=== PATIENT | female | born 1970 | race Caucasian/White ===

== ENCOUNTER 2021-07-09 16:08 | Inpatient (IN) | payer BC ==
[2021-07-09] MEDS ORDERED: THIAMINE HCL 200 MG/2 ML VIAL IVPB ONE (17:05)
[2021-07-09] MEDS ORDERED: MULTIVITAMINS (DAILY MVI) TABLET (FP) PO ONE (17:06)
[2021-07-09] MEDS ORDERED: diazePAM CARPU-JECT 10 MG/2 ML DISP.SYRIN IVPUSH ONE (17:08)
[2021-07-09] MEDS ORDERED: THIAMINE HCL 200 MG/2 ML VIAL ONE (17:57)
[2021-07-09] MEDS ORDERED: MULTIVITAMINS (DAILY MVI) TABLET (FP) ONE (17:58)
[2021-07-09] MEDS ORDERED: diazePAM CARPU-JECT 10 MG/2 ML DISP.SYRIN ONE (18:02)
[2021-07-09 18:05] LABS: BASO % 0.2 % (0-2.0); EOS % 0.4 % (0-4.5); HEMATOCRIT 32.9 % (32.4-45.2); HEMOGLOBIN 11.3 GM/dL (10.7-15.3); LYMPH % 8.2 % (8-40); MCHC 34.2 g/dl (32.0-36.0); MEAN CELL VOLUME 108.1 fl (80-96); MONO % 8.5 % (3.8-10.2); NEUT % 82.7 % (42.8-82.8); RBC 3.04 M/mm3 (3.60-5.2); RDW 16.5 % (11.6-15.6); RETICULOCYTES 2.07 % (0.5-1.5); WHITE BLOOD COUNT 3.5 K/mm3 (4.0-10.0)
[2021-07-09 18:14] LABS: INR 1.71 (0.83-1.09); PROTHROMBIN TIME (PATIENT) 19.8 SEC (9.7-13.0)
[2021-07-09] MEDS ORDERED: FOLIC ACID 1 MG TABLET (FP) PO ONE (18:14)
[2021-07-09 18:16] LABS: ACTIVATED PTT 33.6 SECONDS (25.2-36.5)
[2021-07-09 18:29] LABS: CHLORIDE 98 mmol/L (98-107); SODIUM 137 mmol/L (136-145)
[2021-07-09 18:31] LABS: CALCIUM 8.7 mg/dL (8.5-10.1)
[2021-07-09 18:32] LABS: ALBUMIN 2.9 g/dl (3.4-5.0); ANION GAP 10 MMOL/L (8-16); BLOOD UREA NITROGEN 9.7 mg/dL (7-18); CO2 29 mmol/L (21-32); GLUCOSE,RANDOM 111 mg/dL (74-106); LIPASE 235 U/L (73-393); MAGNESIUM 2.1 mg/dL (1.8-2.4)
[2021-07-09 18:34] LABS: CREATININE 0.9 mg/dL (0.55-1.3)
[2021-07-09 18:35] LABS: PHOSPHOROUS 2.4 mg/dL (2.5-4.9); SGOT/AST 225 U/L (15-37); SGPT/ALT 74 U/L (13-61)
[2021-07-09 18:36] LABS: BILIRUBIN,TOTAL 6.4 mg/dL (0.2-1); TOT PROT 7.8 g/dl (6.4-8.2)
[2021-07-09 18:37] LABS: ALK PHOS 274 U/L (45-117)
[2021-07-09 18:38] LABS: N-TERMINAL BNP 870.5 pg/ml (5-125)
[2021-07-09 19:25] LABS: ANISOCYTOSIS 1+; MACROCYTOSIS 2+; PLATELET ESTIMATE DECREASED
[2021-07-09 19:39] LABS: MEAN PLT VOLUME 9.9 fl (7.5-11.1); PLATELET COUNT 70 10^3/uL (134-434)
[2021-07-09 19:43] LABS: CALCIUM 8.6 mg/dL (8.5-10.1)
[2021-07-09 19:44] LABS: BLOOD UREA NITROGEN 8.4 mg/dL (7-18); MAGNESIUM 2.1 mg/dL (1.8-2.4)
[2021-07-09 19:46] LABS: BILIRUBIN,DIRECT 3.6 mg/dL (0.0-0.2)
[2021-07-09 19:47] LABS: PHOSPHOROUS 2.1 mg/dL (2.5-4.9)
[2021-07-09 19:48] LABS: TOT PROT 7.4 g/dl (6.4-8.2)
[2021-07-09 20:38] LABS: HIV INTERPRETATION NEGATIVE (NEGATIVE)
[2021-07-09] MEDS ORDERED: FOLIC ACID 1 MG TABLET (FP) ONE (20:41)
[2021-07-09 20:54] LABS: CREATININE 0.7 mg/dL (0.55-1.3)
[2021-07-09 21:34] LABS: URINE APPEARANCE CLEAR; URINE BILIRUBIN NEGATIVE (NEGATIVE); URINE COLOR YELLOW; URINE GLUCOSE (UA) NEGATIVE (NEGATIVE); URINE KETONE TRACE (NEGATIVE); URINE LEUK ESTERASE NEGATIVE (NEGATIVE); URINE NITRITE NEGATIVE (NEGATIVE); URINE PROTEIN NEGATIVE (NEGATIVE)
[2021-07-09 21:44] LABS: METHADONE, UR NEGATIVE (NEGATIVE)
[2021-07-09 21:45] LABS: COCAINE, UR NEGATIVE (NEGATIVE); OPIATES, URI NEGATIVE (NEGATIVE)
[2021-07-09 21:46] LABS: PHENCYCLIDINE,URINE NEGATIVE (NEGATIVE); URINE BENZODIAZEPINES NEGATIVE (NEGATIVE)
[2021-07-09 21:49] LABS: URINE AMPHETAMINES NEGATIVE (NEGATIVE); URINE BARBITURATES NEGATIVE (NEGATIVE)
[2021-07-10] MEDS ORDERED: diazePAM 5 MG TABLET PO ONE (00:57)
[2021-07-10] MEDS ORDERED: POLYETHYLENE GLYCOL (HEALTHYLAX) 3350 17 GM PACKET PO PRN (01:12)
[2021-07-10 04:15] VITALS: BMI 40.2
[2021-07-10] MEDS ORDERED: LORazepam 2 MG/ML SDV VIAL IVPUSH PRN (05:00)
[2021-07-10] MEDS ORDERED: PANTOPRAZOLE 40 MG TABLET PO SCH (10:00)
[2021-07-10] MEDS ORDERED: DEXTROSE 5%-WATER - 50 ML IVPB ONE (10:45)
[2021-07-10] MEDS ORDERED: cefTRIAXone SODIUM 1 GM VIAL ONE (10:45)
[2021-07-10] MEDS: LORazepam 0.5 MG TABLET PO PRN (10:48)
[2021-07-10] MEDS: guaiFENesin 200 MG/10 ML 10 ML UNIT-DOSE CUPS PO PRN ×2 (10:49→17:37)
[2021-07-10] MEDS: THIAMINE HCL 100 MG TABLET (FP) PO SCH (10:49)
[2021-07-10] MEDS: MULTIVITAMINS (DAILY MVI) TABLET (FP) PO SCH (10:49)
[2021-07-10] MEDS: FOLIC ACID 1 MG TABLET (FP) PO SCH (10:49)
[2021-07-10] MEDS: CEFTRIAXONE 1 GM in DEXTROSE 5%-WATER - 50 ML IVPB SCH (10:50)
[2021-07-10 11:16] LABS: CALCIUM 8.2 mg/dL (8.5-10.1)
[2021-07-10 11:17] LABS: ALBUMIN 2.6 g/dl (3.4-5.0); BLOOD UREA NITROGEN 10.3 mg/dL (7-18)
[2021-07-10 11:20] LABS: CREATININE 0.8 mg/dL (0.55-1.3)
[2021-07-10 11:21] LABS: BILIRUBIN,TOTAL 4.8 mg/dL (0.2-1)
[2021-07-10 11:22] LABS: TOT PROT 6.4 g/dl (6.4-8.2)
[2021-07-10] MEDS ORDERED: ACETYLCYSTEINE INJECTION 20% 15,000 MG in DEXTROSE 5%-WATER - 250 ML IVPB SCH (12:00)
[2021-07-10] MEDS ORDERED: ACETYLCYSTEINE INJECTION 20% 5,000 MG in DEXTROSE 5%-WATER - 500 ML IVPB SCH (13:00)
[2021-07-10] MEDS ORDERED: ACETYLCYSTEINE INJECTION 20% 10,000 MG in DEXTROSE 5%-WATER - 1,000 ML IVPB SCH ×2 (17:00→20:45)
[2021-07-10] MEDS ORDERED: POTASSIUM CHLORIDE TABS 20 MEQ TABLET.ER (FP) PO ONE (17:47)
[2021-07-10] MEDS ORDERED: ALBUTEROL SO4 HFA INHALER IH PRN (17:54)
[2021-07-10] MEDS: traMADol HCL 50 MG TABLET PO PRN (18:34)
[2021-07-10] MEDS: POLYETHYLENE GLYCOL (HEALTHYLAX) 3350 17 GM PACKET PO SCH (22:36)
[2021-07-11] MEDS ORDERED: DEXTROSE 5%-WATER - 50 ML IVPB ONE (09:11)
[2021-07-11] MEDS ORDERED: cefTRIAXone SODIUM 1 GM VIAL ONE (09:11)
[2021-07-11] MEDS: THIAMINE HCL 100 MG TABLET (FP) PO SCH (09:17)
[2021-07-11] MEDS: MULTIVITAMINS (DAILY MVI) TABLET (FP) PO SCH (09:17)
[2021-07-11] MEDS: CEFTRIAXONE 1 GM in DEXTROSE 5%-WATER - 50 ML IVPB SCH (09:17)
[2021-07-11] MEDS: FOLIC ACID 1 MG TABLET (FP) PO SCH (09:17)
[2021-07-11] MEDS: POLYETHYLENE GLYCOL (HEALTHYLAX) 3350 17 GM PACKET PO SCH ×2 (09:17→21:03)
[2021-07-11] MEDS: LORazepam 0.5 MG TABLET PO PRN ×2 (09:20→17:20)
[2021-07-11] MEDS: guaiFENesin 200 MG/10 ML 10 ML UNIT-DOSE CUPS PO PRN (09:26)
[2021-07-11 09:39] LABS: HEMOGLOBIN 11.1 GM/dL (10.7-15.3); MCH 36.2 pg (25.7-33.7); MCHC 33.7 g/dl (32.0-36.0); MEAN CELL VOLUME 107.5 fl (80-96); MEAN PLT VOLUME 9.2 fl (7.5-11.1); PLATELET COUNT 68 10^3/uL (134-434); RBC 3.07 M/mm3 (3.60-5.2); RDW 16.5 % (11.6-15.6); WHITE BLOOD COUNT 3.1 K/mm3 (4.0-10.0)
[2021-07-11 10:09] LABS: ALBUMIN 2.7 g/dl (3.4-5.0); BLOOD UREA NITROGEN 5.3 mg/dL (7-18); CALCIUM 8.3 mg/dL (8.5-10.1)
[2021-07-11 10:11] LABS: MAGNESIUM 1.8 mg/dL (1.8-2.4)
[2021-07-11 10:12] LABS: PHOSPHOROUS 1.9 mg/dL (2.5-4.9)
[2021-07-11 10:14] LABS: BILIRUBIN,TOTAL 4.9 mg/dL (0.2-1); TOT PROT 6.8 g/dl (6.4-8.2)
[2021-07-11 10:17] LABS: ALBUMIN 2.6 g/dl (3.4-5.0)
[2021-07-11 10:21] LABS: BILIRUBIN,TOTAL 4.8 mg/dL (0.2-1); TOT PROT 6.8 g/dl (6.4-8.2)
[2021-07-11 10:25] LABS: CREATININE 0.7 mg/dL (0.55-1.3)
[2021-07-11 10:55] LABS: ANISOCYTOSIS 2+; MACROCYTOSIS 0
[2021-07-11] MEDS: traMADol HCL 50 MG TABLET PO PRN ×2 (10:55→21:02)
[2021-07-11 11:22] LABS: ACTIVATED PTT 35.5 SECONDS (25.2-36.5); INR 1.83 (0.83-1.09); PROTHROMBIN TIME (PATIENT) 21.2 SEC (9.7-13.0)
[2021-07-11] MEDS ORDERED: POTASSIUM CHLORIDE TABS 20 MEQ TABLET.ER (FP) PO ONE (15:03)
[2021-07-12] MEDS ORDERED: FUROSEMIDE 40 MG/4 ML INJECTABLE VIAL IVPUSH ONE (09:28)
[2021-07-12] MEDS ORDERED: DEXTROSE 5%-WATER - 50 ML IVPB ONE (09:43)
[2021-07-12] MEDS ORDERED: cefTRIAXone SODIUM 1 GM VIAL ONE (09:43)
[2021-07-12 09:45] LABS: HEMATOCRIT 31.5 % (32.4-45.2); HEMOGLOBIN 10.8 GM/dL (10.7-15.3); MCH 36.7 pg (25.7-33.7); MCHC 34.2 g/dl (32.0-36.0); MEAN CELL VOLUME 107.6 fl (80-96); PLATELET COUNT 62 10^3/uL (134-434); RBC 2.93 M/mm3 (3.60-5.2); RDW 16.2 % (11.6-15.6); WHITE BLOOD COUNT 2.6 K/mm3 (4.0-10.0)
[2021-07-12 09:52] LABS: INR 1.8 (0.83-1.09); PROTHROMBIN TIME (PATIENT) 20.8 SEC (9.7-13.0)
[2021-07-12] MEDS: POLYETHYLENE GLYCOL (HEALTHYLAX) 3350 17 GM PACKET PO SCH ×2 (10:13→21:10)
[2021-07-12] MEDS: LORazepam 0.5 MG TABLET PO PRN ×2 (10:13→21:08)
[2021-07-12] MEDS: guaiFENesin 200 MG/10 ML 10 ML UNIT-DOSE CUPS PO PRN ×2 (10:13→21:07)
[2021-07-12] MEDS: POTASSIUM CHLORIDE TABS 20 MEQ TABLET.ER (FP) PO SCH ×2 (10:13→21:08)
[2021-07-12] MEDS: CEFTRIAXONE 1 GM in DEXTROSE 5%-WATER - 50 ML IVPB SCH (10:13)
[2021-07-12] MEDS: MAGNESIUM OXIDE 400 MG TABLET (FP) PO SCH ×2 (10:14→21:08)
[2021-07-12] MEDS: FOLIC ACID 1 MG TABLET (FP) PO SCH (10:14)
[2021-07-12 10:29] LABS: ANISOCYTOSIS 1+; MACROCYTOSIS 0
[2021-07-12 10:32] LABS: ALBUMIN 2.7 g/dl (3.4-5.0)
[2021-07-12 10:34] LABS: CALCIUM 8.4 mg/dL (8.5-10.1)
[2021-07-12 10:35] LABS: BLOOD UREA NITROGEN 5.4 mg/dL (7-18)
[2021-07-12 10:36] LABS: BILIRUBIN,DIRECT 2.6 mg/dL (0.0-0.2)
[2021-07-12 10:38] LABS: CREATININE 0.7 mg/dL (0.55-1.3)
[2021-07-12 10:39] LABS: BILIRUBIN,TOTAL 3.9 mg/dL (0.2-1); TOT PROT 6.5 g/dl (6.4-8.2)
[2021-07-12] MEDS: MULTIVITAMINS (DAILY MVI) TABLET (FP) PO SCH (10:39)
[2021-07-12] MEDS: THIAMINE HCL 100 MG TABLET (FP) PO SCH (10:39)
[2021-07-13 08:26] LABS: HEMATOCRIT 31.4 % (32.4-45.2); HEMOGLOBIN 10.5 GM/dL (10.7-15.3); MCH 36.6 pg (25.7-33.7); MCHC 33.6 g/dl (32.0-36.0); MEAN CELL VOLUME 109.1 fl (80-96); MEAN PLT VOLUME 9.2 fl (7.5-11.1); PLATELET COUNT 61 10^3/uL (134-434); RBC 2.88 M/mm3 (3.60-5.2); RDW 16.4 % (11.6-15.6); WHITE BLOOD COUNT 2.6 K/mm3 (4.0-10.0)
[2021-07-13 08:30] LABS: INR 1.9 (0.83-1.09)
[2021-07-13 08:47] LABS: ALBUMIN 2.4 g/dl (3.4-5.0); CALCIUM 8.3 mg/dL (8.5-10.1)
[2021-07-13 08:48] LABS: BLOOD UREA NITROGEN 6.6 mg/dL (7-18); MAGNESIUM 1.9 mg/dL (1.8-2.4)
[2021-07-13 08:50] LABS: BILIRUBIN,DIRECT 2.2 mg/dL (0.0-0.2)
[2021-07-13 08:52] LABS: BILIRUBIN,TOTAL 3.3 mg/dL (0.2-1); TOT PROT 6.2 g/dl (6.4-8.2)
[2021-07-13 08:53] LABS: CREATININE 0.6 mg/dL (0.55-1.3)
[2021-07-13] MEDS ORDERED: PHYTONADIONE 10 MG/1 ML AMP IVPB ONE (09:08)
[2021-07-13 09:38] LABS: ANISOCYTOSIS 1+; MACROCYTOSIS 1+
[2021-07-13] MEDS ORDERED: DEXTROSE 5%-WATER - 50 ML IVPB ONE (09:50)
[2021-07-13] MEDS ORDERED: cefTRIAXone SODIUM 1 GM VIAL ONE (09:50)
[2021-07-13] MEDS: FOLIC ACID 1 MG TABLET (FP) PO SCH (10:18)
[2021-07-13] MEDS: POTASSIUM CHLORIDE TABS 20 MEQ TABLET.ER (FP) PO SCH ×2 (10:18→21:55)
[2021-07-13] MEDS: THIAMINE HCL 100 MG TABLET (FP) PO SCH (10:18)
[2021-07-13] MEDS: POLYETHYLENE GLYCOL (HEALTHYLAX) 3350 17 GM PACKET PO SCH ×2 (10:19→21:55)
[2021-07-13] MEDS: MAGNESIUM OXIDE 400 MG TABLET (FP) PO SCH ×2 (10:19→21:56)
[2021-07-13] MEDS: MULTIVITAMINS (DAILY MVI) TABLET (FP) PO SCH (10:19)
[2021-07-13] MEDS: CEFTRIAXONE 1 GM in DEXTROSE 5%-WATER - 50 ML IVPB SCH (10:47)
[2021-07-13] MEDS: traMADol HCL 50 MG TABLET PO PRN (17:06)
[2021-07-13] MEDS ORDERED: FUROSEMIDE 40 MG/4 ML INJECTABLE VIAL IVPUSH ONE (17:17)
[2021-07-13] MEDS: guaiFENesin 200 MG/10 ML 10 ML UNIT-DOSE CUPS PO PRN (18:20)
[2021-07-13] MEDS: LORazepam 0.5 MG TABLET PO PRN (21:56)
[2021-07-14 08:11] LABS: HEMATOCRIT 32.6 % (32.4-45.2); MCH 36.6 pg (25.7-33.7); MCHC 33.8 g/dl (32.0-36.0); MEAN CELL VOLUME 108.2 fl (80-96); MEAN PLT VOLUME 9.6 fl (7.5-11.1); PLATELET COUNT 74 10^3/uL (134-434); RBC 3.01 M/mm3 (3.60-5.2); RDW 15.8 % (11.6-15.6); WHITE BLOOD COUNT 2.8 K/mm3 (4.0-10.0)
[2021-07-14] MEDS ORDERED: FUROSEMIDE 40 MG/4 ML INJECTABLE VIAL IVPUSH ONE (08:13)
[2021-07-14 08:31] LABS: CALCIUM 8.5 mg/dL (8.5-10.1); INR 1.77 (0.83-1.09); PROTHROMBIN TIME (PATIENT) 20.5 SEC (9.7-13.0)
[2021-07-14 08:32] LABS: ALBUMIN 2.6 g/dl (3.4-5.0); BLOOD UREA NITROGEN 6.6 mg/dL (7-18)
[2021-07-14 08:35] LABS: BILIRUBIN,DIRECT 2.2 mg/dL (0.0-0.2); CREATININE 0.6 mg/dL (0.55-1.3)
[2021-07-14 08:37] LABS: BILIRUBIN,TOTAL 3.6 mg/dL (0.2-1); TOT PROT 6.6 g/dl (6.4-8.2)
[2021-07-14 09:07] LABS: BASO % 1.1 % (0-2.0); EOS % 3.2 % (0-4.5); HEMATOCRIT 32.6 % (32.4-45.2); LYMPH % 25.1 % (8-40); MCH 36.3 pg (25.7-33.7); MCHC 33.7 g/dl (32.0-36.0); MEAN CELL VOLUME 107.8 fl (80-96); MEAN PLT VOLUME 9.4 fl (7.5-11.1); MONO % 18.5 % (3.8-10.2); NEUT % 52.1 % (42.8-82.8); PLATELET COUNT 68 10^3/uL (134-434); RBC 3.02 M/mm3 (3.60-5.2); RDW 16.2 % (11.6-15.6); WHITE BLOOD COUNT 2.8 K/mm3 (4.0-10.0)
[2021-07-14] MEDS ORDERED: cefTRIAXone SODIUM 1 GM VIAL ONE (09:27)
[2021-07-14] MEDS ORDERED: DEXTROSE 5%-WATER - 50 ML IVPB ONE (09:28)
[2021-07-14] MEDS ORDERED: FUROSEMIDE 40 MG TABLET (FP) PO SCH (10:00)
[2021-07-14] MEDS ORDERED: ESCITALOPRAM OXALATE 10 MG TABLET PO SCH (10:00)
[2021-07-14] MEDS: MULTIVITAMINS (DAILY MVI) TABLET (FP) PO SCH (10:11)
[2021-07-14] MEDS: POTASSIUM CHLORIDE TABS 20 MEQ TABLET.ER (FP) PO SCH (10:11)
[2021-07-14] MEDS: THIAMINE HCL 100 MG TABLET (FP) PO SCH (10:11)
[2021-07-14] MEDS: FOLIC ACID 1 MG TABLET (FP) PO SCH (10:12)
[2021-07-14] MEDS: CEFTRIAXONE 1 GM in DEXTROSE 5%-WATER - 50 ML IVPB SCH (10:12)
[2021-07-14] MEDS: POLYETHYLENE GLYCOL (HEALTHYLAX) 3350 17 GM PACKET PO SCH (10:12)
[2021-07-14] MEDS: MAGNESIUM OXIDE 400 MG TABLET (FP) PO SCH (10:12)
[2021-07-14 18:45] VITALS: BP 119/71; PULSE 97; TEMP 98.1
== END 2021-07-14 18:31 | disposition home or self-care (01) | DRG 432 ==
LOC: JER 16:08 → JERBED 20:27 → J5S 07-10 03:00
PROVIDERS: ADMIT Internal Medicine; ATTEND Internal Medicine
DX: K70.31 Alcoholic cirrhosis of liver with ascites (principal); J18.9 Pneumonia, unspecified organism; F10.230 Alcohol dependence with withdrawal, uncomplicated; J98.11 Atelectasis; K76.0 Fatty (change of) liver, not elsewhere classified; D69.6 Thrombocytopenia, unspecified; F41.9 Anxiety disorder, unspecified; R00.2 Palpitations; G62.1 Alcoholic polyneuropathy; K70.10 Alcoholic hepatitis without ascites; R53.1 Weakness; R16.2 Hepatomegaly with splenomegaly, not elsewhere classified; K70.0 Alcoholic fatty liver
CPT/HCPCS: 0241U-QW; 36415; 71046-TC-FY; 71250-TC; 74181-TC; 76705-TC; 80048; 80053; 80076; 80307; 81003; 82105; 82140; 82607; 82746; 83010; 83516; 83540; 83550; 83605; 83615; 83690; 83735; 83880; 84100; 84439; 84443; 84484; 84703; 85025; 85027; 85045; 85610; 85730; 86038; 86705; 86707; 86708; 86803; 87040; 87086; 87340; 87389; 87517; 87807; 87899; 93005; 93010; 93306-TC; 93970-TC; 97116-GP; 97161-GP; 99285-25; C9803-CS; U0003; U0005

== ENCOUNTER 2024-07-01 22:39 | Observation (INO) | payer BC ==
[2024-07-01] MEDS ORDERED: ONDANSETRON 4 MG/2 ML VIAL ONE (22:48)
[2024-07-02] MEDS ORDERED: ACETAMINOPHEN INJECTION 100 ML ONE ×2 (00:05→17:25)
[2024-07-02] MEDS ORDERED: ONDANSETRON 4 MG/2 ML VIAL ONE ×2 (00:05→17:11)
[2024-07-02] MEDS: ACETAMINOPHEN 1000 MG/100 ML BAG IVPB ONE (00:24)
[2024-07-02] MEDS: ONDANSETRON 4 MG/2 ML VIAL IVPUSH ONE (00:24)
[2024-07-02 00:50] LABS: BASOPHILS # 0.02 x10^3/uL (0.01-0.08); HEMATOCRIT 38.6 % (34.1-44.9); HEMOGLOBIN 13.5 g/dL (11.2-15.7); RDW 13.8 % (12.3-16.6)
[2024-07-02] MEDS: SODIUM CHLORIDE 0.9% 500 ML INFUS.BAG IV ONE (00:50)
[2024-07-02 00:51] LABS: ABSOLUTE IMMATURE GRANULOCYTES 0.04 x10^3/uL (0.0-0.031); EOSINOPHIL % 0.4 % (0.7-5.8); EOSINOPHILS # 0.02 x10^3/uL (0.04-0.36); MEAN CELL VOLUME 85.2 fl (79.4-94.8); MEAN PLT VOLUME 10.1 fl (9.4-12.3); MONOCYTE # 0.33 x10^3/uL (0.24-0.86); MONOCYTE % 6.3 % (4.7-12.5); PLATELET COUNT 107 x10^3/uL (182-369)
[2024-07-02 01:10] LABS: CHLORIDE 101 mmol/L (98-107); SODIUM 139 mmol/L (136-145)
[2024-07-02 01:13] LABS: ALBUMIN 3.6 g/dl (3.4-5.0); BLOOD UREA NITROGEN 6.5 mg/dL (7-18); CALCIUM 9.1 mg/dL (8.5-10.1); CO2 28 mmol/L (21-32); GLUCOSE,RANDOM 115 mg/dL (74-106); MAGNESIUM 1.5 mg/dL (1.8-2.4)
[2024-07-02 01:16] LABS: CREATININE 0.8 mg/dL (0.55-1.3); SGOT/AST 26 U/L (15-37); SGPT/ALT 16 U/L (13-61)
[2024-07-02 01:17] LABS: BILIRUBIN,TOTAL 2.2 mg/dL (0.2-1); TOT PROT 6.4 g/dl (6.4-8.2)
[2024-07-02 01:20] LABS: ALK PHOS 64 U/L (45-117)
[2024-07-02 01:22] LABS: ANION GAP 10 mmol/L (4-13); POTASSIUM 2.8 mmol/L (3.5-5.1)
[2024-07-02] MEDS ORDERED: MAGNESIUM SULFATE IN WATER 2 GM/50 ML IVPB IVPB ONE (01:31)
[2024-07-02] MEDS ORDERED: POTASSIUM CHLORIDE ORAL LIQUID 20 MEQ/15 ML ONE ×2 (01:31→08:51)
[2024-07-02] MEDS: KCL 10 MEQ IVPB 10 MEQ/100 ML INFUS.BAG IVPB SCH (01:50)
[2024-07-02] MEDS: MAGNESIUM SULFATE IN WATER 2 GM/50 ML IVPB IVPB ONE (01:50)
[2024-07-02] MEDS: POTASSIUM CHLORIDE ORAL LIQUID 20 MEQ/15 ML PO ONE ×2 (02:23→10:10)
[2024-07-02] MEDS ORDERED: ACETAMINOPHEN 1000 MG/100 ML BAG IVPB PRN (03:15)
[2024-07-02] MEDS ORDERED: FUROSEMIDE 40 MG TABLET (FP) PO PRN (03:22)
[2024-07-02 04:19] LABS: BILIRUBIN,DIRECT 0.8 mg/dL (0.0-0.2)
[2024-07-02] MEDS ORDERED: MELATONIN 5 MG TABLETS ONE (04:24)
[2024-07-02] MEDS ORDERED: PANTOPRAZOLE SODIUM 40 MG VIAL ONE (04:25)
[2024-07-02] MEDS ORDERED: KCL 10 MEQ IVPB 10 MEQ/100 ML INFUS.BAG IVPB ONE (04:26)
[2024-07-02] MEDS: SODIUM CHLORIDE 0.9%/KCL 20 MEQ/1,000 ML INFUS.BAG IV SCH (04:45)
[2024-07-02] MEDS: MELATONIN 5 MG TABLETS PO ONE (04:45)
[2024-07-02] MEDS: PANTOPRAZOLE SODIUM 40 MG VIAL IVPUSH ONE (04:45)
[2024-07-02] MEDS ORDERED: MAG HYDROX/AL HYDROX/SIMETH 30 ML UNIT-DOSE CUP PO PRN (05:10)
[2024-07-02 06:37] LABS: MCHC 34.7 g/dl (32.2-35.5); RDW 13.8 % (12.3-16.6)
[2024-07-02 06:39] LABS: HEMATOCRIT 37.2 % (34.1-44.9); HEMOGLOBIN 12.9 g/dL (11.2-15.7); MEAN CELL VOLUME 85.1 fl (79.4-94.8); MEAN PLT VOLUME 10.2 fl (9.4-12.3); PLATELET COUNT 115 x10^3/uL (182-369)
[2024-07-02 06:57] LABS: POTASSIUM 3.2 mmol/L (3.5-5.1)
[2024-07-02 06:59] LABS: BLOOD UREA NITROGEN 4.8 mg/dL (7-18); CALCIUM 8.4 mg/dL (8.5-10.1); MAGNESIUM 1.8 mg/dL (1.8-2.4)
[2024-07-02 07:02] LABS: ALBUMIN 3.4 g/dl (3.4-5.0); BILIRUBIN,DIRECT 0.8 mg/dL (0.0-0.2); CREATININE 0.7 mg/dL (0.55-1.3)
[2024-07-02 07:04] LABS: PHOSPHOROUS 2.9 mg/dL (2.5-4.9)
[2024-07-02 07:06] LABS: BILIRUBIN,DIRECT 0.8 mg/dL (0.0-0.2); BILIRUBIN,TOTAL 1.9 mg/dL (0.2-1)
[2024-07-02 07:08] LABS: TOT PROT 6.2 g/dl (6.4-8.2)
[2024-07-02] MEDS ORDERED: FOLIC ACID 1 MG TABLET (FP) ONE ×2 (08:56→08:58)
[2024-07-02] MEDS ORDERED: THIAMINE 100 MG TABLET ONE (08:56)
[2024-07-02] MEDS ORDERED: CARVEDILOL 3.125 MG TABLET (FP) ONE (08:56)
[2024-07-02] MEDS ORDERED: MULTIVITAMINS (DAILY MVI) TABLET (FP) ONE (08:56)
[2024-07-02] MEDS ORDERED: ENOXAPARIN NA (PORCINE) 40 MG/0.4 ML DISP.SYRIN SQ ONE (08:57)
[2024-07-02 09:07] LABS: EPI CELLS 19 /uL (0-25.1); HYALINE CASTS 0 /uL (0-3.1); PH,URINE 5.5 (5.0-8.0); URINE APPEARANCE CLEAR; URINE BACTERIA 131 /uL (0-1359); URINE BILIRUBIN NEGATIVE (NEGATIVE); URINE COLOR YELLOW; URINE GLUCOSE (UA) 2+ (NEGATIVE); URINE KETONE 1+ (NEGATIVE); URINE LEUK ESTERASE TRACE (NEGATIVE); URINE NITRITE NEGATIVE (NEGATIVE); URINE PROTEIN NEGATIVE (NEGATIVE); URINE RBC 16 /uL (0-23.9); URINE WBC 39 /uL (0-25.8)
[2024-07-02 09:27] LABS: YEAST NONE SEEN (NEGATIVE)
[2024-07-02] MEDS: THIAMINE 100 MG TABLET PO SCH (10:10)
[2024-07-02] MEDS: predniSONE 5 MG TABLET (UD) PO SCH (10:10)
[2024-07-02] MEDS: CARVEDILOL 3.125 MG TABLET (FP) PO SCH (10:10)
[2024-07-02] MEDS: ENOXAPARIN NA (PORCINE) 40 MG/0.4 ML DISP.SYRIN SQ SCH (10:10)
[2024-07-02] MEDS: MYCOPHENOLATE MOFETIL 500 MG TABLET PO SCH (10:10)
[2024-07-02] MEDS: MULTIVITAMINS (DAILY MVI) TABLET (FP) PO SCH (10:10)
[2024-07-02] MEDS: FOLIC ACID 1 MG TABLET (FP) PO SCH (10:10)
[2024-07-02] MEDS: SERTRALINE HCL 25 MG TABLET (FP) PO SCH (10:10)
[2024-07-02 11:38] LABS: HEPATITIS B SURF AG NON-MATERN NON-REACTIVE (NONREACTIVE)
[2024-07-02 13:01] LABS: HCV DIAGNOSTIC IN-HOUSE W/RFLX NON-REACTIVE (NONREACTIVE); HIV INTERPRETATION NEGATIVE (NEGATIVE)
[2024-07-02 13:56] LABS: URINE AMPHETAMINES NEGATIVE (NEGATIVE); URINE BARBITURATES NEGATIVE (NEGATIVE); URINE BENZODIAZEPINES NEGATIVE (NEGATIVE)
[2024-07-02 13:57] LABS: METHADONE, UR NEGATIVE (NEGATIVE); OPIATES, URI NEGATIVE (NEGATIVE); PHENCYCLIDINE,URINE NEGATIVE (NEGATIVE)
[2024-07-02 14:17] LABS: COCAINE, UR NEGATIVE (NEGATIVE)
[2024-07-02] MEDS: ONDANSETRON 4 MG/2 ML VIAL IVPUSH PRN (17:16)
[2024-07-02] MEDS: MELATONIN 5 MG TABLETS PO PRN (22:19)
[2024-07-03 01:04] VITALS: BMI 26.6
[2024-07-03 09:29] LABS: POTASSIUM 3.4 mmol/L (3.5-5.1)
[2024-07-03 09:31] LABS: CALCIUM 8.6 mg/dL (8.5-10.1)
[2024-07-03 09:32] LABS: BLOOD UREA NITROGEN 4.4 mg/dL (7-18)
[2024-07-03 09:35] LABS: CREATININE 0.7 mg/dL (0.55-1.3)
[2024-07-03] MEDS ORDERED: POTASSIUM CHLORIDE ORAL LIQUID 20 MEQ/15 ML PO ONE (10:22)
[2024-07-03] MEDS: D5-1/2NS+40 MEQ KCL - 40 MEQ/1,000 ML INFUS.BAG IV SCH (11:04)
[2024-07-03 12:10] LABS: MAGNESIUM 1.7 mg/dL (1.8-2.4)
[2024-07-03] MEDS: MAGNESIUM SULF 50% (8.12 MEQ/2 ML-1 GM VIAL) IVPB ONE (13:52)
[2024-07-03 17:29] VITALS: BP 124/75; PULSE 79; RESP 19; TEMP 99
[2024-07-08] MEDS ORDERED: METHOTREXATE 2.5 MG TABLET PO SCH (10:00)
== END 2024-07-03 18:23 | disposition home or self-care (01) ==
LOC: JER 22:39 → JERBED 07-02 01:36 → J4W 07-02 19:49
PROVIDERS: ADMIT Internal Medicine; ATTEND Internal Medicine
PROC: 3E033NZ Introduction of Analgesics, Hypnotics, Sedatives into Peripheral Vein, Percutaneous Approach (ICD-10-PCS; principal; 2024-07-02)
PROC: 3E0337Z Introduction of Electrolytic and Water Balance Substance into Peripheral Vein, Percutaneous Approach (ICD-10-PCS; 2024-07-02)
PROC: 3E023GC Introduction of Other Therapeutic Substance into Muscle, Percutaneous Approach (ICD-10-PCS; 2024-07-02)
PROC: 3E033GC Introduction of Other Therapeutic Substance into Peripheral Vein, Percutaneous Approach (ICD-10-PCS; 2024-07-02)
DX: R11.2 Nausea with vomiting, unspecified (principal); R79.89 Other specified abnormal findings of blood chemistry; F10.10 Alcohol abuse, uncomplicated; E87.6 Hypokalemia; E83.42 Hypomagnesemia; G62.1 Alcoholic polyneuropathy; K70.10 Alcoholic hepatitis without ascites; H20.9 Unspecified iridocyclitis; H35.81 Retinal edema; Z29.9 Encounter for prophylactic measures, unspecified; R11.10 Vomiting, unspecified; K82.4 Cholesterolosis of gallbladder
CPT/HCPCS: 0241U-QW; 36415; 71045-TC-FY; 76705-TC; 80048; 80053; 80076; 80307; 81003; 82248; 82962; 83690; 83735; 84100; 84484; 84703; 85025; 85027; 85651; 86140; 86704; 86709; 86803; 87040; 87086; 87340; 87389; 87517; 93005; 93010; 93306-TC; 96361; 96365; 96372; 96375; 96376; 99285-25; G0378; J0131; J7517